=== PATIENT | male | born 1955 ===

== ENCOUNTER → 2021-03-31 | Outpatient (CLI) | payer SELFPAY ==
--- NOTE | 2021-04-03 09:08 | PATHOLOGY ---
[facility] Accession Number: [id number] . 01 Material submitted: . cheek - LEFT CHEEK- SUTURE AT 12:00. Modifiers: left . 01 Clinician provided ICD-10: D18.01 . 01 Clinical history: . PATTON ANGIOMA . 02 Diagnosis: Skin and subcutaneous tissue, left cheek lesion excision: - Nodular basal cell carcinoma; inked margins of excision free of neoplasm. (JPM:wilner; 04/02/2021) MBR 04/02/2021 1340 Local . 02 Electronically signed: . Luis Alberto dAan MD, Pathologist NPI- [id number] . 01 Gross description: . The specimen is received in formalin, labeled "Lambert Peacock, skin lesion left cheek". Received is an irregular ellipse of skin measuring 0.9 x 0.8 x 0.4 cm in greatest dimension, with a suture placed near one tip designated as the 12:00 margin. The epidermal surface displays a poorly defined, slightly raised, pale bailey and wrinkled lesion measuring 0.4 x 0.4 cm, and comes within 0.2 cm of the 9:00 margin. The surgical margins are inked as follows: 12:00-3:00-yellow, 3:00-6:00-blue, 6:00-12:00-black. The specimen is sectioned into 5 pieces and entirely submitted in cassettes A1-A2, with the 12:00 and 6:00 aspects placed in cassette A2. ([facility]; 04/01/2021) NRI/NRI 04/01/2021 1912 Local . 02 Pathologist provided ICD-10: C44.319 . 02 CPT . 835053 Specimen Comment: A courtesy copy of this report has been sent to [phone] Specimen Comment: Report sent to Specimen Comment: A duplicate report has been generated due to demographic updates. Performed at: 01 [facility] [id number] [address] [id number] MD Ashvin Herring MD Phone: [phone] Performed at: [facility] [address] [place] [id number] MD Luis Alberto Adan MD Phone: [phone]
== END ==
LOC: SPEC 15:27
PROVIDERS: ATTEND Plastic Surgery
DX: D18.01 Hemangioma of skin and subcutaneous tissue (principal)
CPT/HCPCS: 88305